=== PATIENT | male | born 1980 | race Caucasian/White ===

== ENCOUNTER 2020-04-01 01:03 | Emergency (ER) | payer BC, OTHER ==
[~2020-04-01] VITALS: Ht 175 cm; Wt 88.0 kg
--- NOTE | 2020-04-01 01:37 | ED General ---
General Chief Complaint: Skin/Wound Problems Stated Complaint: RASH ON GENITALS;ABD PAIN/CRAMPING Source of Information: Patient History of Present Illness Date Seen by Provider: Apr 01, 2020 Time Seen by Provider: 01:17 Initial Comments PT ARRIVES VIA POV FROM HOME STATES HE HAS HAD ITCHING ALL ACROSS LOWER ABDOMEN AND GROIN AREA FOR THE LAST 3 DAYS, TONIGHT HE NOTICED WELTS IN THE AREA AND ITCHING IS MUCH WORSE TONIGHT. HAS NOT TAKEN ANYTHING FOR ITCHING ADDITIONALLY, SINCE YESTERDAY AROUND 1300, PT HAS BEEN HAVING GENERALIZED ABDOMINAL CRAMPING AND BLOATING-COMES AND GOES NOTHING [id number] OR IMPROVES SYMPTOMS STATES HE HAS BEEN HAVING INCREASING STOMACH PROBLEMS EVERY TIME HE EATS FOR THE LAST 2-3 WEEKS--ALOT OF PAIN AND BLOATING AND "INDIGESTION" NO NAUSEA/VOMITING PT STATES HE HAS GERD/ULCERS AND TAKES PRILOSEC. DID NOT TAKE ANY YESTERDAY BECAUSE IT CAUSES HIM TO BE CONSTIPATED, AND HE WAS ABLE TO HAVE 3 BM'S YESTERDAY, BUT NO IMPROVEMENT IN PAIN WITH BM'S. STATES HE IS LACTOSE INTOLERANT AND ABDOMINAL CRAMPING FEELS THE SAME WITH LACTOSE INTOLERANCE. DENIES ANY INGESTION OF MILK PRODUCTS. TOOK TUMS EARLIER, BUT NO IMPROVEMENT IN SYMPTOMS NO PRIOR ABDOMINAL SURGERIES OR PROCEDURES STATES HE HAS BEEN ON PRILOSEC FOR 13 YEARS, AND WAS TOLD 12-13 YEARS AGO THAT HE NEEDED AND EGD AND COLONOSCOPY, BUT HE NEVER HAD IT DONE AND NEVER FOLLOWED UP WITH ANYONE FOR THIS PROBLEM NO FEVER NO URI SYMPTOMS NO RECENT ILLNESS SON WAS DX WITH STREP TODAY-03/31/20 PT DENIES SORE THROAT NO NEW MEDICATIONS, PRODUCTS, FOODS OR EXPOSURES--LATER STATES HE JUST GOT NEW UNDERWEAR THIS WEEK--AND AREA OF RASH IS DIRECTLY IN THIS DISTRIBUTION NO SUSPICIOUS FOODS PCP: [facility]. Allergies and Home Medications Allergies Coded Allergies: Penicillins (Verified Allergy, Unknown, 04/01/20) Home Medications Ciprofloxacin HCl 500 Mg Tablet, 500 MG PO BID Prescribed by: FRED VALENZUELA on 04/01/20342 Hyoscyamine Sulfate 0.125 Mg Tab.subl, 0.25 MG SL Q4H Prescribed by: FRED VALENZUELA on 04/01/20342 L. Acidophilus/Pectin, [place] 1 Each Capsule, 2 EACH PO QID Prescribed by: FRED VAELNZUELA on 04/01/20342 Methylprednisolone 4 Mg Tab.ds.pk, 4 MG PO UD PER DOSE PACK INSTRUCTIONS Prescribed by: FRED VALENZUELA on 04/01/20342 Metronidazole 500 Mg Tablet, 500 MG PO QID Prescribed by: FRED VALENZUELA on 04/01/20342 Tramadol HCl 50 Mg Tablet, 50 MG PO Q4H Prescribed by: FRED VALENZUELA on 04/01/20342 Patient Home Medication List Home Medication List Reviewed: Yes Review of Systems Review of Systems Constitutional: no symptoms reported; No chills, No diaphoresis, No dizziness, No fever EENTM: no symptoms reported; No nose congestion, No throat pain Respiratory: no symptoms reported; No cough, No short of breath Cardiovascular: no symptoms reported; No chest pain Gastrointestinal: see HPI, abdominal pain; No diarrhea, No nausea, No vomiting Genitourinary: no symptoms reported Musculoskeletal: no symptoms reported Skin: see HPI, pruritus, rash Psychiatric/Neurological: No Symptoms Reported Hematologic/Lymphatic: No Symptoms Reported Immunological/Allergic: no symptoms reported Past Fythpsc-Rcwyap-Xcgqya Hx Past Med/Social Hx: Reviewed and Corrections made Patient Social History Alcohol Use: Rarely Uses Past Medical History Surgeries: No Respiratory: No Cardiac: Yes (DOES NOT TAKE MEDICATION FOR HTN) Hypertension Neurological: No Genitourinary: No Gastrointestinal: Yes (LACTOSE INTOLERANCE) Gastroesophageal Reflux, Ulcer Musculoskeletal: No Endocrine: No HEENT: No Cancer: No Psychosocial: Yes Anxiety Integumentary: No Blood Disorders: No Physical Exam Vital Signs Vital Signs - First Documented 04/01/20 01:30 Temp 37.1 Pulse 110 Resp 18 B/P (MAP) 117/90 (99) Pulse Ox 96 O2 Delivery Room Air Capillary Refill : Height, Weight, BMI Height: '" Weight: lbs. oz. kg; BMI Method: General Appearance: No Apparent Distress, WD/WN HEENT: PERRL/EOMI, TMs Normal, Normal ENT Inspection, Pharynx Normal, Moist Mucous Membranes Neck: Full Range of Motion, Normal Inspection, Non Tender, Supple Respiratory: Normal Breath Sounds, No Accessory Muscle Use, No Respiratory Distress Cardiovascular: Regular Rate, Rhythm, No Murmur, Normal Peripheral Pulses Gastrointestinal: Normal Bowel Sounds, No Organomegaly, No Pulsatile Mass, Soft, Tenderness (MILD GENERALIZED TENDERNESS) Back: Normal Inspection, No CVA Tenderness Extremity: Normal Inspection Neurologic/Psychiatric: Alert, Oriented x3, No Motor/Sensory Deficits, Normal Mood/Affect, agent licensing clerk II-XII Norm as Tested Skin: Normal Color, Warm/Dry, Rash (URTICARIAL RASH TO LOWER ABDOMEN AND GROIN AREA BILATERALLY. ) Progress/Results/Core Measures Suspected Sepsis SIRS Temperature: Pulse: Respiratory Rate: Laboratory Tests 04/01/20 02:15: White Blood Count 15.4H Blood Pressure / Mean: Laboratory Tests 04/01/20 02:15: Creatinine 1.10, Platelet Count 377, Total Bilirubin 0.3 Results/Orders Lab Results Laboratory Tests Test 04/01/20 01:26 04/01/20 02:15 04/01/20 03:15 Range/Units Group A Streptococcus Screen NEGATIVE NEGATIVE White Blood Count 15.4 H 4.3-11.0 10^3/uL Red Blood Count 5.22 4.30-5.52 10^6/uL Hemoglobin 15.6 13.3-17.7 g/dL Hematocrit 45 40-54 % Mean Corpuscular Volume 87 80-99 fL Mean Corpuscular Hemoglobin 30 25-34 pg Mean Corpuscular Hemoglobin Concent 34 32-36 g/dL Red Cell Distribution Width 11.9 10.0-14.5 % Platelet Count 377 130-400 10^3/uL Mean Platelet Volume 10.8 9.0-12.2 fL Immature Granulocyte % (Auto) 0 % Neutrophils (%) (Auto) 73 42-75 % Lymphocytes (%) (Auto) 18 12-44 % Monocytes (%) (Auto) 8 0-12 % Eosinophils (%) (Auto) 1 0-10 % Basophils (%) (Auto) 0 0-10 % Neutrophils # (Auto) 11.2 H 1.8-7.8 10^3/uL Lymphocytes # (Auto) 2.8 1.0-4.0 10^3/uL Monocytes # (Auto) 1.2 H 0.0-1.0 10^3/uL Eosinophils # (Auto) 0.1 0.0-0.3 10^3/uL Basophils # (Auto) 0.0 0.0-0.1 10^3/uL Immature Granulocyte # (Auto) 0.1 0.0-0.1 10^3/uL Neutrophils % (Manual) 71 % Lymphocytes % (Manual) 19 % Monocytes % (Manual) 8 % Eosinophils % (Manual) 1 % Atypical Lymphocytes 1 % Blood Morphology Comment NORMAL Sodium Level 139 135-145 MMOL/L Potassium Level 4.0 3.6-5.0 MMOL/L Chloride Level 106 98-107 MMOL/L Carbon Dioxide Level 21 21-32 MMOL/L Anion Gap 12 5-14 MMOL/L Blood Urea Nitrogen 15 7-18 MG/DL Creatinine 1.10 0.60-1.30 MG/DL Estimat Glomerular Filtration Rate > 60 BUN/Creatinine Ratio 14 Glucose Level 122 H 70-105 MG/DL Calcium Level 9.2 8.5-10.1 MG/DL Corrected Calcium 8.9 8.5-10.1 MG/DL Magnesium Level 1.9 1.6-2.4 MG/DL Total Bilirubin 0.3 0.1-1.0 MG/DL Aspartate Amino Transf (AST/SGOT) 22 5-34 U/L Alanine Aminotransferase (ALT/SGPT) 45 0-55 U/L Alkaline Phosphatase 88 40-136 U/L Total Protein 7.9 6.4-8.2 GM/DL Albumin 4.4 3.2-4.5 GM/DL Amylase Level 42 25-125 U/L Lipase 16 8-78 U/L Monoscreen NEGATIVE NEGATIVE Urine Color YELLOW Urine Clarity SL CLOUDY Urine pH 5.5 5-9 Urine Specific [place] 1.020 1.016-1.022 Urine Protein NEGATIVE NEGATIVE Urine Glucose (UA) NEGATIVE NEGATIVE Urine Ketones NEGATIVE NEGATIVE Urine Nitrite NEGATIVE NEGATIVE Urine Bilirubin NEGATIVE NEGATIVE Urine Urobilinogen 0.2 < = 1.0 MG/DL Urine Leukocyte Esterase NEGATIVE NEGATIVE Urine RBC (Auto) NEGATIVE NEGATIVE Urine RBC 0-2 /HPF Urine WBC RARE /HPF Urine Squamous Epithelial Cells RARE /HPF Urine Crystals NONE /LPF Urine Bacteria NEGATIVE /HPF Urine Casts NONE /LPF Urine Mucus NEGATIVE /LPF Urine Culture Indicated NO Urine Opiates Screen NEGATIVE NEGATIVE Urine Oxycodone Screen NEGATIVE NEGATIVE Urine Methadone Screen NEGATIVE NEGATIVE Urine Propoxyphene Screen NEGATIVE NEGATIVE Urine Barbiturates Screen NEGATIVE NEGATIVE Ur Tricyclic Antidepressants Screen NEGATIVE NEGATIVE Urine Phencyclidine Screen NEGATIVE NEGATIVE Urine Amphetamines Screen NEGATIVE NEGATIVE Urine Methamphetamines Screen NEGATIVE NEGATIVE Urine Benzodiazepines Screen NEGATIVE NEGATIVE Urine Cocaine Screen NEGATIVE NEGATIVE Urine Cannabinoids Screen NEGATIVE NEGATIVE My Orders Orders - FRED VALENZUELA DO Rapid Strep A Screen (04/01/20 01:21) Ed Iv/Invasive Line Start (04/01/20 01:44) Amylase (04/01/20 01:44) Cbc With Automated Diff (04/01/20 01:44) Comprehensive Metabolic Panel (04/01/20 01:44) Lipase (04/01/20 01:44) Magnesium (04/01/20 01:44) Ua Culture If Indicated (04/01/20 01:44) Ct Abd/Pelv W (Appendicitis) (04/01/20 01:44) Acute Abd Series (04/01/20 01:44) Famotidine Injection (Pepcid Injection) (04/01/20 01:44) Methylprednisolone Sod Succ (Solu-Medrol (04/01/20 01:45) Monotest (04/01/20 01:47) Diphenhydramine Injection (Benadryl Inje (04/01/20 02:00) Iohexol Injection (Omnipaque 350 Mg/Ml 1 (04/01/20 02:15) Received Contrast (Hold Metformin- Contr (04/01/20 02:15) Ns (Ivpb) (Sodium Chloride 0.9% Ivpb Bag (04/01/20 02:15) Manual Differential (04/01/20 02:15) Drug Screen Stat (Urine) (04/01/20 03:20) Fentanyl Injection (Sublimaze Injection (04/01/20 03:45) Ciprofloxacin Iv 400mg/200ml (Cipro Iv S (04/01/20 03:45) Metronidazole Tablet (Flagyl Tablet) (04/01/20 03:45) Medications Given in ED Current Medications Medications Dose Ordered Sig/[place] Route Start Time Stop Time Status Last Admin Dose Admin Ciprofloxacin/ Dextrose 200 ml @ 200 mls/hr ONCE ONCE IV 04/01/20 03:45 04/01/20 04:44 04/01/20 03:54 200 MLS/HR Diphenhydramine HCl 50 mg ONCE ONCE IVP 04/01/20 02:00 04/01/20 02:01 DC 04/01/20 02:15 50 MG Fentanyl Citrate 50 mcg ONCE ONCE IVP 04/01/20 03:45 04/01/20 03:46 DC 04/01/20 03:54 50 MCG Methylprednisolone Sodium Succinate 125 mg ONCE ONCE IVP 04/01/20 01:45 04/01/20 01:48 DC 04/01/20 02:14 125 MG Metronidazole 500 mg ONCE ONCE PO 04/01/20 03:45 04/01/20 03:46 DC 04/01/20 03:54 500 MG Vital Signs/I&O 04/01/20 01:30 Temp 37.1 Pulse 110 Resp 18 B/P (MAP) 117/90 (99) Pulse Ox 96 O2 Delivery Room Air Capillary Refill : Progress Note : Progress Note GIVEN IV FLUIDS, PAIN MEDICATION, ANTIBIOTICS FOR GI COMPLAINTS--SYMPTOMS MUCH IMPROVED AT DISMISSAL GIVEN BENADRYL, PEPCID AND SOLU-MEDROL FOR RASH--RASH AND ITCHING COMPLETELY GONE UNEVENTFUL ER STAY Diagnostic Imaging Comments ABDOMEN XRAYS--NO ACUTE PROCESS, PENDING RADIOLOGIST REVIEW CT ABDOMEN/PELVIS--MURAL THICKENING OF TERMINAL ILEUM. MILD RIGHT COLON INFLAMMATION AROUND CECUM AND PROXIMAL ASCENDING COLON. APPENDIX NORMAL. NO DIVERTICULITIS. FINDINGS SUSPICIOUS FOR ILEOCOLITIS, CORRELATE WITH INDICATIONS OF CROHN'S DISEASE--PER [facility] VIA FAX AT [id number] Reviewed: Reviewed by Me Departure Impression Primary Impression: Colitis Additional Impression: ALLERGIC REACTION -POSSIBLY CONTACT DERMATITIS TO LOWER ABDOMEN AND GROIN Disposition: HOME, SELF-CARE Condition: Improved Departure-Patient Inst. Referrals: OBDULIO SEALS MD [facility] [place] Patient Instructions: Allergic Reaction ED, Colitis (DC) Add. Discharge Instructions: BENADRYL 50 MG EVERY 4-6 HOURS NEEDED FOR RASH AND ITCHING MAY USE HYDROCORTISONE CREAM TO RASH NEEDED WASH AND DOUBLE RINSE ALL CLOTHING CLEAR LIQUIDS--WATER, BROTH, JELLO, GATORADE--DRINK ENOUGH SO YOU ARE URINATING EVERY 2-3 HOURS WHILE AWAKE NO FOOD UNTIL YOUR PAIN IS COMPLETELY GONE, THEN YOU MAY ADD A BRATS DIET TO CLEAR LIQUIDS--BANANAS, RICE, APPLESAUCE, TOAST, SALTINES FOLLOW UP WITH DR. SEALS OR SURGEON OR GI SPECIALIST OF CHOICE THIS WEEK FOR FURTHER CARE--CALL TOMORROW MORNING TO SCHEDULE APPOINTMENT. ' RETURN TO ER IF ABDOMINAL PAIN WORSENS, YOU DEVELOP FEVER OR IF YOU CANNOT KEEP LIQUIDS DOWN. All discharge instructions reviewed with patient and/or family. Voiced understanding. Scripts Tramadol HCl (Ultram) 50 Mg Tablet 50 MG PO Q4H for Pain, #20 TAB Prov: FRED VALENZUELA DO 04/01/20 Methylprednisolone (Medrol) 4 Mg Tab.ds.pk 4 MG PO UD for 6 Days, #21 PKG PER DOSE PACK INSTRUCTIONS Prov: FRED VALENZUELA DO 04/01/20 Hyoscyamine Sulfate (Levsin-Sl) 0.125 Mg Tab.subl 0.25 MG SL Q4H, #20 TAB Prov: FRED VALENZUELA DO 04/01/20 Metronidazole (Flagyl) 500 Mg Tablet 500 MG PO QID, #40 TAB Prov: FRED VALENZUELA DO 04/01/20 Ciprofloxacin HCl (Ciprofloxacin HCl) 500 Mg Tablet 500 MG PO BID, #14 TAB Prov: FRED VALENZUELA DO 04/01/20 L. Acidophilus/Pectin, [place] (Acidophilus Capsule) 1 Each Capsule 2 EACH PO QID, #40 CAP Prov: FRED VALENZUELA DO 04/01/20 FRED VALENZUELA DO Apr 01, 2020 01:37
[2020-04-01] MEDS ORDERED: FAMOTIDINE 20MG/2ML IV (PEPCID) IV STA (01:44)
[2020-04-01] MEDS ORDERED: methylPREDNISolone 125 MG (Solu-MEDROL) VIAL IVP ONE (01:45)
[2020-04-01] MEDS ORDERED: diphenhydrAMINE 50 MG/ML INJ (BENADRYL) IVP ONE (02:00)
[2020-04-01] MEDS ORDERED: HOLD METFORMIN - RECEIVED CONTRAST 20 ML VIAL IV SCH (02:15)
[2020-04-01] MEDS ORDERED: NS 100 ML (IVPB) BAG IV ONE (02:15)
[2020-04-01] MEDS ORDERED: IOHEXOL 350 MG/ML 100 ML (OMNIPAQUE 350) VIAL IV ONE (02:15)
[2020-04-01 02:25] LABS: BASOPHILS % (AUTO) 0 % (0-10); EOSINOPHILS # (AUTO) 0.1 10^3/uL (0.0-0.3); EOSINOPHILS % (AUTO) 1 % (0-10); HEMATOCRIT 45 % (40-54); HEMOGLOBIN 15.6 g/dL (13.3-17.7); LYMPHOCYTES # (AUTO) 2.8 10^3/uL (1.0-4.0); LYMPHOCYTES % (AUTO) 18 % (12-44); MEAN CORPUSCULAR HEMOGLOBIN 30 pg (25-34); MEAN CORPUSCULAR HGB CONC 34 g/dL (32-36); MEAN CORPUSCULAR VOLUME 87 fL (80-99); MEAN PLATELET VOLUME 10.8 fL (9.0-12.2); MONOCYTES # (AUTO) 1.2 10^3/uL (0.0-1.0); MONOCYTES % (AUTO) 8 % (0-12); NEUTROPHILS # (AUTO) 11.2 10^3/uL (1.8-7.8); NEUTROPHILS % (AUTO) 73 % (42-75); PLATELET COUNT 377 10^3/uL (130-400); WHITE BLOOD COUNT 15.4 10^3/uL (4.3-11.0)
[2020-04-01 02:31] LABS: ALBUMIN 4.4 GM/DL (3.2-4.5); CHLORIDE 106 MMOL/L (98-107); SODIUM 139 MMOL/L (135-145)
[2020-04-01 02:32] LABS: AMYLASE 42 U/L (25-125); CALCIUM 9.2 MG/DL (8.5-10.1)
[2020-04-01 02:33] LABS: GLUCOSE 122 MG/DL (70-105); TOTAL PROTEIN 7.9 GM/DL (6.4-8.2)
[2020-04-01 02:35] LABS: BILIRUBIN,TOTAL 0.3 MG/DL (0.1-1.0); CARBON DIOXIDE 21 MMOL/L (21-32)
[2020-04-01 02:37] LABS: ALKALINE PHOSPHATASE 88 U/L (40-136); GFR ESTIMATED > 60
[2020-04-01 02:38] LABS: BUN/CREATININE RATIO 14
[2020-04-01 02:40] LABS: ALANINE AMINOTRANSFERASE 45 U/L (0-55); MAGNESIUM 1.9 MG/DL (1.6-2.4)
[2020-04-01 02:41] LABS: LIPASE 16 U/L (8-78)
[2020-04-01 03:11] LABS: ATYPICAL LYMPHOCYTES 1 %; EOSINOPHILS % (MANUAL) 1 %; LYMPHOCYTES % (MANUAL) 19 %; MONOCYTES % (MANUAL) 8 %; NEUTROPHILS % (MANUAL) 71 %; RBC MORPH NORMAL
[2020-04-01 03:22] LABS: BILIRUBIN,URINE NEGATIVE (NEGATIVE); CLARITY,URINE SL CLOUDY; COLOR,URINE YELLOW; GLUCOSE, URINE (UA) NEGATIVE (NEGATIVE); KETONES,URINE NEGATIVE (NEGATIVE); LEUKOCYTE ESTERASE ,URINE NEGATIVE (NEGATIVE); NITRITE,URINE NEGATIVE (NEGATIVE); PH,URINE 5.5 (5-9); PROTEIN,URINE NEGATIVE (NEGATIVE)
[2020-04-01 03:31] LABS: BACTERIA,URINE NEGATIVE /HPF; RBC,URINE 0-2 /HPF; SQUAMOUS EPITHELIAL CELL,UR RARE /HPF; WBC,URINE RARE /HPF
[2020-04-01 03:35] LABS: AMPHETAMINE SCREEN, URINE NEGATIVE (NEGATIVE); BARBITURATE SCREEN URINE NEGATIVE (NEGATIVE); BENZODIAZEPINES SCREEN URINE NEGATIVE (NEGATIVE); CANNABINOID SCREEN, URINE NEGATIVE (NEGATIVE); COCAINE SCREEN URINE NEGATIVE (NEGATIVE); METHADONE STAT NEGATIVE (NEGATIVE); METHAMPHETAMINE SCREEN URINE S NEGATIVE (NEGATIVE); OPIATE SCREEN URINE NEGATIVE (NEGATIVE); OXYCODONE STAT NEGATIVE (NEGATIVE); PROPOXYPHENE STAT NEGATIVE (NEGATIVE); TRICYCLIC ANTIDEPRESSANTS SCRE NEGATIVE (NEGATIVE)
[2020-04-01] MEDS ORDERED: METH4TAB PO (03:43)
[2020-04-01] MEDS ORDERED: TRAM-42 PO (03:43)
[2020-04-01] MEDS ORDERED: METR500T PO (03:43)
[2020-04-01] MEDS ORDERED: CIPR500T5 PO (03:43)
[2020-04-01] MEDS ORDERED: L. A1CAP11 PO (03:43)
[2020-04-01] MEDS ORDERED: HYOS0.1283 SL (03:43)
[2020-04-01] MEDS ORDERED: metroNIDAZOLE 500 MG (FLAGYL) TAB PO ONE (03:45)
[2020-04-01] MEDS ORDERED: fentaNYL INJECTION 100 MCG/2 ML AMP IVP ONE (03:45)
[2020-04-01] MEDS ORDERED: CIPROFLOXACIN IV 400MG/200ML 200 ML IV ONE (03:45)
[2020-04-01 05:01] VITALS: BP 122/88
--- NOTE | 2020-04-01 06:50 | Diagnostic Imaging Report ---
Indication: Generalized abdominal pain. Comparison: None. Discussion: AP view of the chest and supine and upright views of the abdomen were obtained. Contrast is noted within the renal collecting system, likely from prior CT. The heart and lungs are normal. No osseous abnormality. Nonobstructive bowel gas pattern. No significant constipation. No pneumatosis or pneumoperitoneum. No osseous abnormality. Impression: 1. Unremarkable bowel gas pattern. No acute cardiopulmonary process. Dictated by: Dictated on workstation # [id number]
--- NOTE | 2020-04-01 07:09 | Diagnostic Imaging Report ---
PROCEDURE: CT abdomen and pelvis with contrast, rule out appendicitis. TECHNIQUE: Multiple contiguous axial images were obtained through the abdomen and pelvis after the administration of intravenous contrast. All CT scans use one or more of the following dose optimizing techniques: automated exposure control, MA and/or KvP adjustment based on patient size and exam type or iterative reconstruction. INDICATION: Redness and itching in the groin and genital region for 3 days. Not improving. Abdominal cramping, bloating and diarrhea. Right lower quadrant pain. EXAMINATION: CT of the abdomen and pelvis with contrast from 04/01/2020 FINDINGS: The lung bases appear clear. No acute osseous abnormality appreciated. Liver, spleen, pancreas, adrenal glands and gallbladder unremarkable for acute abnormality. There is mild hyperdensity at the very tip of the gallbladder nonspecific. Findings could be due to a focal stone, polyp or wall thickening. Sonography on a nonemergent basis if there is no right upper quadrant pain could provide better characterization. The kidneys appear unremarkable. There is marked wall thickening and fat stranding about the cecum and adjacent terminal ileum. No adjacent free air or abscess is seen. The proximal appendix itself may demonstrate mild inflammatory change but likely due to adjacent abnormality in the cecum. More distally, the appendix is normal. There is no ascites or free air. There are findings of mild constipation. There is mild subcutaneous fat stranding in the left inguinal region of uncertain etiology but consistent with patient history. Clinical exclusion of cellulitis recommended. No underlying abscess or fluid collection appreciated. IMPRESSION: 1. Findings of likely ileocolitis, clinical correlation for possible Crohn's disease recommended. 2. No acute process within the appendix. 3. Minimal fat stranding in the left inguinal region see above discussion. Cellulitis should be clinically excluded. The pertinent findings agree with the preliminary report. Dictated by: Dictated on workstation # [id number]
== END 2020-04-01 05:01 | disposition home or self-care (01) ==
LOC: ER 01:07
DX: K52.9 Noninfective gastroenteritis and colitis, unspecified (principal); Z88.0 Allergy status to penicillin; Z79.52 Long term (current) use of systemic steroids
CPT/HCPCS: 36415; 74022; 74177; 80053; 80306; 81000; 82150; 83690; 83735; 85007; 85027; 86308; 87430

== ENCOUNTER 2020-04-04 05:57 | Observation (INO) | payer BC ==
[~2020-04-04] VITALS: Ht 175 cm; Wt 88.0 kg
[~2020-04-04 05:57] MED LIST: CIPR500T5 PO; HYOS0.1283 SL; L. A1CAP11 PO; METH4TAB PO; METR500T PO; TRAM-42 PO
[2020-04-04 06:25] LABS: BILIRUBIN,URINE 1+ (NEGATIVE); CLARITY,URINE SL CLOUDY; COLOR,URINE AMBER; GLUCOSE, URINE (UA) NEGATIVE (NEGATIVE); KETONES,URINE TRACE (NEGATIVE); LEUKOCYTE ESTERASE ,URINE TRACE (NEGATIVE); NITRITE,URINE NEGATIVE (NEGATIVE); PH,URINE 5.5 (5-9); PROTEIN,URINE 1+ (NEGATIVE)
[2020-04-04] MEDS ORDERED: diphenhydrAMINE 50 MG/ML INJ (BENADRYL) IVP ONE (06:30)
[2020-04-04] MEDS ORDERED: LACTATED RINGERS 1,000 ML IV ONE (06:30)
[2020-04-04] MEDS ORDERED: FAMOTIDINE 20MG/2ML IV (PEPCID) IVP ONE (06:30)
[2020-04-04 06:39] LABS: BASOPHILS % (AUTO) 0 % (0-10); EOSINOPHILS % (AUTO) 0 % (0-10); HEMATOCRIT 44 % (40-54); HEMOGLOBIN 15.2 g/dL (13.3-17.7); LYMPHOCYTES # (AUTO) 3.9 10^3/uL (1.0-4.0); LYMPHOCYTES % (AUTO) 20 % (12-44); MEAN CORPUSCULAR HEMOGLOBIN 30 pg (25-34); MEAN CORPUSCULAR HGB CONC 34 g/dL (32-36); MEAN CORPUSCULAR VOLUME 88 fL (80-99); MEAN PLATELET VOLUME 10.6 fL (9.0-12.2); MONOCYTES # (AUTO) 1.9 10^3/uL (0.0-1.0); MONOCYTES % (AUTO) 10 % (0-12); NEUTROPHILS # (AUTO) 13.7 10^3/uL (1.8-7.8); NEUTROPHILS % (AUTO) 70 % (42-75); PLATELET COUNT 462 10^3/uL (130-400); WHITE BLOOD COUNT 19.7 10^3/uL (4.3-11.0)
[2020-04-04 06:50] LABS: BACTERIA,URINE NEGATIVE /HPF; SQUAMOUS EPITHELIAL CELL,UR 0-2 /HPF; WBC,URINE 0-2 /HPF
[2020-04-04 06:52] LABS: ALBUMIN 4.1 GM/DL (3.2-4.5); CHLORIDE 106 MMOL/L (98-107); POTASSIUM 3.7 MMOL/L (3.6-5.0); SODIUM 139 MMOL/L (135-145)
[2020-04-04 06:53] LABS: CALCIUM 8.7 MG/DL (8.5-10.1)
[2020-04-04 06:54] LABS: GLUCOSE 105 MG/DL (70-105); PROTHROMBIN TIME PATIENT 13.1 SEC (12.2-14.7)
[2020-04-04 06:55] LABS: TOTAL PROTEIN 7.1 GM/DL (6.4-8.2)
[2020-04-04 06:56] LABS: BILIRUBIN,TOTAL 0.4 MG/DL (0.1-1.0); CARBON DIOXIDE 22 MMOL/L (21-32)
[2020-04-04 06:58] LABS: ALKALINE PHOSPHATASE 68 U/L (40-136); CREATININE SERUM 1.09 MG/DL (0.60-1.30); GFR ESTIMATED > 60
[2020-04-04 06:59] LABS: BUN/CREATININE RATIO 17
[2020-04-04 07:01] LABS: ALANINE AMINOTRANSFERASE 22 U/L (0-55)
[2020-04-04 07:02] LABS: LIPASE 31 U/L (8-78)
[2020-04-04] MEDS ORDERED: fentaNYL INJECTION 100 MCG/2 ML AMP IVP ONE (07:15)
[2020-04-04] MEDS ORDERED: ONDANSETRON 4 MG/2 ML (SDV) Z0FRAN IVP ONE (07:15)
[2020-04-04 07:35] LABS: BAND NEUTROPHILS 2 %; BASOPHILS % (MANUAL) 0 %; EOSINOPHILS % (MANUAL) 1 %; LYMPHOCYTES % (MANUAL) 16 %; MONOCYTES % (MANUAL) 9 %; NEUTROPHILS % (MANUAL) 72 %; RBC MORPH NORMAL
[2020-04-04] MEDS ORDERED: predniSONE 20 MG TAB PO ONE (08:15)
[2020-04-04] MEDS ORDERED: CIPROFLOXACIN IV 400MG/200ML 200 ML IV ONE (08:15)
--- NOTE | 2020-04-04 08:20 | ED General ---
General Chief Complaint: Allergic Reaction Stated Complaint: RASH Nursing Triage Note: TO ED VIA POV AND AMBULATORY TO ROOM 5 WITH C/O INCREASING RASH TO GROIN AREA, ITCHING, AND NEW RASH APPEARANCE TO FACE. TOOK BENADRYL AT 0100 WITH NO RELIEF. PT SEEN IN THIS ER 04/01/20 AND DX WITH COLITIS AND GIVEN RX. RASH NOTED ON PREVIOUS VISIT. Nursing Sepsis Screen: No Definite Risk Source of Information: Patient, Old Records Exam Limitations: No Limitations History of Present Illness Date Seen by Provider: Apr 04, 2020 Time Seen by Provider: 06:00 Initial Comments This 39-year-old gentleman presents to the emergency room with complaints of a target-like pruritic rash in the groin and anterior pelvic region, rash across the face, upper abdominal pain, and nausea. He was seen for this on April 01 and was diagnosed with colitis on CT imaging. He was started on a Medrol Dosepak, Cipro, and Flagyl. He has not improved. In fact, the rash has worsened. Benadryl does help some with the rash. He reports no prior episodes. His mother has ulcerative colitis but he has no personal history of inflammatory bowel disease. The radiologist commented on a need to rule out inflammatory bowel disease based on CT imaging when he was here on the . He has no local primary care provider. He is afebrile but tachycardic. Allergies and Home Medications Allergies Coded Allergies: Penicillins (Verified Allergy, Unknown, 04/01/20) Home Medications Ciprofloxacin HCl 500 Mg Tablet, 500 MG PO BID Prescribed by: FRED VALENZUELA on 04/01/20342 Hyoscyamine Sulfate 0.125 Mg Tab.subl, 0.25 MG SL Q4H Prescribed by: FRED VALENZUELA on 04/01/20342 L. Acidophilus/Pectin, [place] 1 Each Capsule, 2 EACH PO QID Prescribed by: FRED VALENZUELA on 04/01/20342 Methylprednisolone 4 Mg Tab.ds.pk, 4 MG PO UD PER DOSE PACK INSTRUCTIONS Prescribed by: FRED VALENZUELA on 04/01/20342 Metronidazole 500 Mg Tablet, 500 MG PO QID Prescribed by: FRED VALENZUELA on 04/01/20342 Tramadol HCl 50 Mg Tablet, 50 MG PO Q4H Prescribed by: FRED VALENZUELA on 04/01/20342 Patient Home Medication List Home Medication List Reviewed: Yes Review of Systems Review of Systems Constitutional: no symptoms reported EENTM: no symptoms reported Respiratory: no symptoms reported Cardiovascular: see HPI Gastrointestinal: see HPI Genitourinary: no symptoms reported Musculoskeletal: no symptoms reported Skin: see HPI Psychiatric/Neurological: No Symptoms Reported Hematologic/Lymphatic: No Symptoms Reported Immunological/Allergic: no symptoms reported Past Tdtmqja-Zatrfn-Svbflm Hx Past Med/Social Hx: Reviewed Nursing Past Med/Soc Hx Patient Social History Alcohol Use: Denies Use Smoking Status: Current Everyday Smoker Recent Infectious Disease Expo: No Recent Hopitalizations: No Seasonal Allergies Seasonal Allergies: No Past Medical History Surgeries: No Respiratory: No Cardiac: Yes (DOES NOT TAKE MEDICATION FOR HTN) Hypertension Neurological: No Genitourinary: No Gastrointestinal: Yes (LACTOSE INTOLERANCE) Colitis, Gastroesophageal Reflux, Ulcer Musculoskeletal: No Endocrine: No HEENT: No Cancer: No Psychosocial: Yes Anxiety Integumentary: No Blood Disorders: No Family Medical History Reviewed and Corrections made GI Disease (Mother has ulcerative colitis) Physical Exam Vital Signs Vital Signs - First Documented 04/04/20 06:07 Temp 36.9 Pulse 116 Resp 18 B/P (MAP) 144/100 (115) O2 Delivery Room Air Capillary Refill : Less Than 3 Seconds Height, Weight, BMI Height: '" Weight: lbs. oz. kg; 28.00 BMI Method: General Appearance: WD/WN, Mild Distress HEENT: PERRL/EOMI, Normal ENT Inspection, Other (Oropharynx somewhat dry) Neck: Normal Inspection Respiratory: No Accessory Muscle Use, No Respiratory Distress, Wheezing Cardiovascular: Regular Rate, Rhythm, No Edema, Normal Peripheral Pulses Gastrointestinal: Normal Bowel Sounds, Soft, Distended, Tenderness (Epigastric region) Extremity: Normal Inspection, No Pedal Edema Neurologic/Psychiatric: Alert, Oriented x3, No Motor/Sensory Deficits, Normal Mood/Affect, end matcher II-XII Norm as Tested Skin: Normal Color, Warm/Dry Progress/Results/Core Measures Suspected Sepsis Recent Fever Within 48 Hours: No Infection Criteria Present: Documented Infection New/Unexplained Altered Menta: No Sepsis Screen: No Definite Risk SIRS Temperature: Pulse: 116 Respiratory Rate: 18 Laboratory Tests 04/04/20 06:27: White Blood Count 19.7H Blood Pressure 144 /100 Mean: 115 Laboratory Tests 04/04/20 06:27: Creatinine 1.09, INR Comment 1.0, Platelet Count 462H, Total Bilirubin 0.4 Results/Orders Lab Results Laboratory Tests Test 04/04/20 06:20 04/04/20 06:27 04/04/20 07:48 Range/Units Urine Color ANIRUDH H Urine Clarity SL CLOUDY Urine pH 5.5 5-9 Urine Specific Two Dot >=1.030 1.016-1.022 Urine Protein 1+ H NEGATIVE Urine Glucose (UA) NEGATIVE NEGATIVE Urine Ketones TRACE H NEGATIVE Urine Nitrite NEGATIVE NEGATIVE Urine Bilirubin 1+ H NEGATIVE Urine Urobilinogen 0.2 < = 1.0 MG/DL Urine Leukocyte Esterase TRACE H NEGATIVE Urine RBC (Auto) NEGATIVE NEGATIVE Urine RBC NONE /HPF Urine WBC 0-2 /HPF Urine Squamous Epithelial Cells 0-2 /HPF Urine Crystals NONE /LPF Urine Bacteria NEGATIVE /HPF Urine Casts NONE /LPF Urine Mucus MODERATE H /LPF Urine Culture Indicated NO White Blood Count 19.7 H 4.3-11.0 10^3/uL Red Blood Count 5.04 4.30-5.52 10^6/uL Hemoglobin 15.2 13.3-17.7 g/dL Hematocrit 44 40-54 % Mean Corpuscular Volume 88 80-99 fL Mean Corpuscular Hemoglobin 30 25-34 pg Mean Corpuscular Hemoglobin Concent 34 32-36 g/dL Red Cell Distribution Width 12.1 10.0-14.5 % Platelet Count 462 H 130-400 10^3/uL Mean Platelet Volume 10.6 9.0-12.2 fL Immature Granulocyte % (Auto) 1 % Neutrophils (%) (Auto) 70 42-75 % Lymphocytes (%) (Auto) 20 12-44 % Monocytes (%) (Auto) 10 0-12 % Eosinophils (%) (Auto) 0 0-10 % Basophils (%) (Auto) 0 0-10 % Neutrophils # (Auto) 13.7 H 1.8-7.8 10^3/uL Lymphocytes # (Auto) 3.9 1.0-4.0 10^3/uL Monocytes # (Auto) 1.9 H 0.0-1.0 10^3/uL Eosinophils # (Auto) 0.0 0.0-0.3 10^3/uL Basophils # (Auto) 0.0 0.0-0.1 10^3/uL Immature Granulocyte # (Auto) 0.1 0.0-0.1 10^3/uL Neutrophils % (Manual) 72 % Lymphocytes % (Manual) 16 % Monocytes % (Manual) 9 % Eosinophils % (Manual) 1 % Basophils % (Manual) 0 % Band Neutrophils 2 % Blood Morphology Comment NORMAL Prothrombin Time 13.1 12.2-14.7 SEC INR Comment 1.0 0.8-1.4 Activated Partial Thromboplast Time 25 24-35 SEC Sodium Level 139 135-145 MMOL/L Potassium Level 3.7 3.6-5.0 MMOL/L Chloride Level 106 98-107 MMOL/L Carbon Dioxide Level 22 21-32 MMOL/L Anion Gap 11 5-14 MMOL/L Blood Urea Nitrogen 18 7-18 MG/DL Creatinine 1.09 0.60-1.30 MG/DL Estimat Glomerular Filtration Rate > 60 BUN/Creatinine Ratio 17 Glucose Level 105 70-105 MG/DL Calcium Level 8.7 8.5-10.1 MG/DL Corrected Calcium 8.6 8.5-10.1 MG/DL Total Bilirubin 0.4 0.1-1.0 MG/DL Aspartate Amino Transf (AST/SGOT) 13 5-34 U/L Alanine Aminotransferase (ALT/SGPT) 22 0-55 U/L Alkaline Phosphatase 68 40-136 U/L C-Reactive Protein High Sensitivity 0.69 H 0.00-0.50 MG/DL Total Protein 7.1 6.4-8.2 GM/DL Albumin 4.1 3.2-4.5 GM/DL Lipase 31 8-78 U/L Troponin I < 0.028 <0.028 NG/ML Micro Results Microbiology 04/04/20 E[facility] Preparation - Final, Complete My Orders Orders - LIBRADO GONZALEZ MD Cbc With Automated Diff (04/04/20 06:16) Comprehensive Metabolic Panel (04/04/20 06:16) Hs C Reactive Protein (04/04/20 06:16) Ua Culture If Indicated (04/04/20 06:16) Erythrocyte Sedimentation Rate (04/04/20 06:16) Ed Iv/Invasive Line Start (04/04/20 06:16) Lactated Ringers (Lr 1000 Ml Iv Solution (04/04/20 06:30) Famotidine Injection (Pepcid Injection) (04/04/20 06:30) Diphenhydramine Injection (Benadryl Inje (04/04/20 06:30) Enrico Prep (04/04/20 06:32) Protime With Inr (04/04/20 06:35) Partial Thromboplastin Time (04/04/20 06:35) Lipase (04/04/20 06:27) Manual Differential (04/04/20 06:27) Ondansetron Injection (Zofran Injectio (04/04/20 07:15) Fentanyl Injection (Sublimaze Injection (04/04/20 07:15) Troponin I (04/04/20 08:00) Ekg Tracing (04/04/20 07:45) Monitor-Rhythm Ecg Trace Only (04/04/20 07:45) Albuterol Inhaler (Ventolin Hfa) (04/04/20 10:00) Chest 1 View, Ap/Pa Only (04/04/20 07:57) Prednisone Tablet (Deltasone Tablet) (04/04/20 08:15) Ciprofloxacin Iv 400mg/200ml (Cipro Iv S (04/04/20 08:15) Medications Given in ED Current Medications Medications Dose Ordered Sig/[place] Route Start Time Stop Time Status Last Admin Dose Admin Diphenhydramine HCl 25 mg ONCE ONCE IVP 04/04/20 06:30 04/04/20 06:31 DC 04/04/20 06:34 25 MG Famotidine 20 mg ONCE ONCE IVP 04/04/20 06:30 04/04/20 06:31 DC 04/04/20 06:34 20 MG Fentanyl Citrate 50 mcg ONCE ONCE IVP 04/04/20 07:15 04/04/20 07:16 DC 04/04/20 07:13 50 MCG Lactated Ringer's 1,000 ml @ 0 mls/hr Q0M ONCE IV 04/04/20 06:30 04/04/20 06:31 DC 04/04/20 06:28 0 MLS/HR Ondansetron HCl 8 mg ONCE ONCE IVP 04/04/20 07:15 04/04/20 07:16 DC 04/04/20 07:13 8 MG Vital Signs/I&O 04/04/20 06:07 Temp 36.9 Pulse 116 Resp 18 B/P (MAP) 144/100 (115) O2 Delivery Room Air Capillary Refill : Less Than 3 Seconds Blood Pressure Mean: 115 Progress Note #1: Progress Note Patient was treated with fentanyl, Pepcid, Zofran, Benadryl and a liter of IV fluid. WBC is elevated but CRP is normal. Sed rate is pending. The petechial rash on the face and target type rash in the groin area could be cutaneous manifestations of IBD. Case was reviewed with Dr. Ibrahim. He is agreeable to admission. He requested patient be treated with prednisone 60 mg orally and antibiotics continued. Cipro 400 mg IV was ordered for the ER. Patient will eventually need endoscopy and surgical consultation. I contacted Dr. Gonzalez who has accepted consult. Benadryl was given for itching. It was noted that the rash in his groin area was migratory even in the amount of time he was in the ER. A scraping was negative for yeast. Later into the ER stay patient complained of some heaviness in his chest. He was also noted to be wheezing. Lung sounds are otherwise clear. He was given an albuterol inhaler. EKG was obtained and a troponin was ordered. EKG was unremarkable. He reports the chest heaviness started around 05:30 when he woke up. Progress Note #2: Time: 09:42 Progress Note Chest x-ray and troponin were negative. EKG was unremarkable. ECG Initial ECG Impression Date: Apr 04, 2020 Initial ECG Impression Time: 07:45 Initial ECG Rate: 83 Initial ECG Rhythm: Normal Sinus Initial ECG Intervals: Normal Initial ECG Impression: Normal Comment Normal sinus rhythm with no ST elevation or depression. No abnormal intervals or axis deviation. Diagnostic Imaging Diagonstic Imaging: Xray Plain Films/CT/US/NM/MRI: chest Comments Chest x-ray reviewed by me and report reviewed. See report below: NAME: JUVENTINO [facility] REC#: [id number] PT STATUS: REG ER : 1980 PHYSICIAN: LIBRADO GONZALEZ MD ADMIT DATE: 04/04/20/ER Draft Date of Exam:04/04/20 CHEST 1 VIEW, AP/PA ONLY INDICATION: Chest pain and wheezing. EXAMINATION: Frontal chest obtained at 8:20 AM. FINDINGS: The heart and mediastinal silhouette are normal in appearance. The lungs are clear. There is no pneumothorax or pleural fluid. IMPRESSION: Negative chest. Dictated on workstation # [id number] Dict: 04/04/20 0831 Trans: 04/04/20 0832 [id number] Interpreted by: FAWAD AGUILAR MD Departure Communication (Admissions) Time/Spoke to Admitting Phy: 07:58 Dr. Ibrahim Time/Spoke to Consulting Phy: 07:58 Dr. Gonzalez Impression Primary Impression: Inflammatory bowel disease Additional Impressions: Abdominal pain Qualified Codes: R10.13 - Epigastric pain Skin rash Chest pain Qualified Codes: R07.9 - Chest pain, unspecified Wheezing Disposition: ADMITTED INPATIENT Condition: Improved Admissions Decision to Admit Reason: Admit from ER (General) Decision to Admit/Date: Apr 04, 2020 Time/Decision to Admit Time: 07:45 Departure-Patient Inst. Referrals: NO,LOCAL PHYSICIAN (PCP/Family) Primary Care Physician LIBRADO GONZALEZ MD Apr 04, 2020 08:20
--- NOTE | 2020-04-04 08:33 | Diagnostic Imaging Report ---
INDICATION: Chest pain and wheezing. EXAMINATION: Frontal chest obtained at 8:20 AM. FINDINGS: The heart and mediastinal silhouette are normal in appearance. The lungs are clear. There is no pneumothorax or pleural fluid. IMPRESSION: Negative chest. Dictated by: Dictated on workstation # [id number]
[2020-04-04 09:35] VITALS: BP 128/82
[2020-04-04] MEDS ORDERED: CATHETER FLUSH 10 ML SYR IV PRN (10:00)
[2020-04-04] MEDS ORDERED: RT-ALBUTEROL INHALER HFA (VENTOLIN HFA) 18 GM IH PRN (10:00)
[2020-04-04] MEDS ORDERED: RT-ALBUTEROL INHALER HFA (VENTOLIN HFA) 18 GM IH SCH (10:00)
[2020-04-04] MEDS ORDERED: FLU QUADRIvalent (3YOA+) 60 mcg/0.5 ml 2020-21 (AFLURIA) IM ONE (10:15)
[2020-04-04] MEDS: LACTATED RINGERS 1,000 ML IV SCH ×3 (10:15→17:17)
[2020-04-04] MEDS ORDERED: HYDROcodone/APAP 7.5 MG/325 MG (LORTAB, LORCET PLUS) TABLET PO PRN (11:00)
[2020-04-04 12:00] VITALS: BP 120/86
[2020-04-04] MEDS ORDERED: METR-145 PO (12:13)
[2020-04-04] MEDS ORDERED: CIPR-225 PO (12:13)
[2020-04-04] MEDS ORDERED: DIPH25CA79 PO (12:13)
[2020-04-04] MEDS ORDERED: HYOS-19 PO (12:13)
[2020-04-04] MEDS ORDERED: TRAM50TA3 PO (12:13)
[2020-04-04] MEDS ORDERED: METH4TAB10 PO (12:13)
[2020-04-04] MEDS ORDERED: L.AC1CAP6 PO (12:13)
[2020-04-04] MEDS: metroNIDAZOLE 500 MG/100 ML IVPB (PRE-MIX) IV SCH ×2 (12:15→18:31)
[2020-04-04] MEDS: diphenhydrAMINE 25 MG TAB (BENADRYL) PO PRN ×3 (12:15→23:50)
[2020-04-04] MEDS: fentaNYL INJECTION 100 MCG/2 ML AMP IV PRN ×3 (12:25→23:50)
--- NOTE | 2020-04-04 13:35 | CONSULTATION REPORT ---
DATE OF SERVICE: ADMITTING PHYSICIAN: Dr. Su Ibrahim. HISTORY OF PRESENT ILLNESS: The patient is a 39-year-old male who presented to the Emergency Department with a crampy lower abdominal pain as well as a pruritic rash along the anterior pelvic region. He also reports that he has had epigastric pain as well as some mild nausea. He was recently seen in the Emergency Department for similar type of pain and a CT scan was performed, which did likely show some level of colitis. He was started on Cipro, Flagyl as well as a Medrol Dosepak and states that he initially felt well; however, his symptoms returned with the pain as well as loose stools. He also does have a family history of inflammatory bowel disease with his mother having ulcerative colitis. At this time, upon further questioning, he does report a significant amount of epigastric pain, which is more likely consistent with gastroesophageal reflux disease or peptic ulcer disease. He does have risk factors including smoking for greater than 20 pack years as well as drinking significant amounts of caffeine on a daily basis. He also reports that spicy, greasy and acidic foods do make his symptoms worse. The crampy abdominal pain in the lower abdominal quadrants is more likely consistent with colitis as well as the diarrhea. We will treat him medically with IV hydration, bowel rest with clear liquid diet; however, the acute treatment for acute inflammation of an inflammatory bowel disease with steroids and also on this admission proceeded with an EGD as well as colonoscopy with biopsy. PAST MEDICAL HISTORY: Hypertension, gastroesophageal reflux disease, lactose intolerance, anxiety. PAST SURGICAL HISTORY: None. ALLERGIES: PENICILLIN. MEDICATIONS: Hyoscyamine 0.125 mg q.4 hours p.r.n., Medrol Dosepak, ciprofloxacin, metronidazole, tramadol p.r.n. SOCIAL HISTORY: Positive smoke 20 pack years. Negative alcohol. FAMILY HISTORY: Mother, ulcerative colitis. VITAL SIGNS: Temperature 36.9, blood pressure 144/100, pulse 116, respirations 18. REVIEW OF SYSTEMS: Well-nourished male, currently in no acute distress. He is not experiencing any shortness of breath or difficulty breathing. No chest pain, palpitations or diaphoresis. Epigastric pain on an intermittent basis; however, this usually does occur several times a week. He does report mild nausea; however, no vomiting as well as no hematemesis, no coffee ground emesis. He reports in the past week he has had loose stools; however, does not report any red blood per rectum. He also has had crampy lower abdominal pain for the past week as well. No fever or chills. No recent inadvertent weight loss. All other review of systems negative. PHYSICAL EXAMINATION: CHEST: Clear. Good breath sounds bilaterally. HEART: Regular, no murmurs. EXTREMITIES: No lower extremity edema, negative Homans sign. HEENT: No scleral icterus. NECK: No cervical lymphadenopathy. ABDOMEN: Soft, nondistended. There is pain in the epigastric region as well as the bilateral lower abdominal quadrants upon deep palpation; however, no peritoneal signs. No hernias. SKIN: There is red rash like lesion in the waistline distribution as well as the anterior pelvis and it is unsure if this is due to extraintestinal manifestations of inflammatory bowel disease versus an allergic reaction. At this time, this does not look severe. LABORATORY DATA: WBC 19.7, hemoglobin 12.5, hematocrit 44, platelets 462, BUN 18, creatinine 1.09. ASSESSMENT AND PLAN: A 39-year-old male with significant gastroesophageal reflux disease and peptic ulcer disease as well as crampy lower abdominal pain on an intermittent basis with loose stools, which may indicate some level of inflammatory bowel disease. On this admission, we will treat him medically with IV hydration, bowel rest, IV steroids as well as continuation of antibiotics; however, we will also proceed with an EGD and colonoscopy with biopsies as appropriate on this admission. Job ID: [id number] DocumentID: [id number] Dictated Date: 04/04/2020 13:05:41 Planer Operator Date: 04/04/2020 13:35:26 Dictated By: OBDULIO SEALS MD [facility]
[2020-04-04 14:22] LABS: ERYTHROCYTE SEDIMENTATION RATE 7 MM/HR (0-15)
[2020-04-04 16:00] VITALS: BP 116/71
[2020-04-04] MEDS: ONDANSETRON 4 MG/2 ML (SDV) Z0FRAN IV PRN (18:33)
[2020-04-04] MEDS: PANTOPRAZOLE 40 MG (PROTONIX) VIAL IV SCH (19:43)
[2020-04-04] MEDS: oxyCODONE/APAP 7.5-325 MG (PERCOCET 7.5) TABLET PO PRN (19:44)
--- NOTE | 2020-04-04 19:54 | History & Physical-Hospitalist ---
History of Present Illness HPI/Chief Complaint Odalys Rincon is a 39 year old male who presented with abdominal pain and rash. He reports having abdominal pain for a few months. He says it has been manageable. He says it comes and goes. He says it gets better with eating food. He reports associated nausea and vomiting. He has also had loose stools. He says his mother has ulcerative colitis. He says he had an ulcer about ten years ago and was recommended to undergo an EGD/colonoscopy at that time but never underwent the procedure. He reports that recently he started to have a pruritic rash in his groin and this combined with his abdominal pain was unbearable. He was found to have colitis on CT imaging and was started on Cipro, Flagyl, and steroids. He says that he did not improve and actually started feeling worse with swelling of his lips and itchy ears. Source: patient Exam Limitations: no limitations Date Seen 04/04/20 Time Seen by a Provider: 12:30 Attending Physician Su De León MD PCP No,Local Physician Referring Physician Date of Admission Apr 04, 2020 at 08:14 Home Medications & Allergies Home Medications Reviewed patient Home Medication Reconciliation performed by pharmacy medication reconciliations avionic technician and/or nursing. Patients Allergies have been reviewed. Allergies Allergies Coded Allergies ciprofloxacin (Verified Allergy, Intermediate, 04/04/20) Penicillins (Verified Allergy, Unknown, 04/01/20) Past Txzdgsu-Bpulru-Gnbnrr Hx Past Med/Social Hx: Reviewed Nursing Past Med/Soc Hx Patient Social History Alcohol Use: Denies Use Recreational Drug Use: No Smoking Status: Current Everyday Smoker Recent Foreign Travel: No Contact w/other who traveled: No Recent Hopitalizations: No Recent Infectious Disease Expo: No Seasonal Allergies Seasonal Allergies: No Past Medical History Cardiac: Hypertension Gastrointestinal: Colitis, Gastroesophageal Reflux, Ulcer Psychosocial: Anxiety History of Blood Disorders: No Family History Reviewed and Corrections made GI Disease (Mother has ulcerative colitis) Review of Systems Constitutional: fever EENTM: no symptoms reported Respiratory: no symptoms reported Cardiovascular: no symptoms reported Gastrointestinal: abdominal pain, nausea, vomiting Genitourinary: no symptoms reported Musculoskeletal: no symptoms reported Skin: pruritus, rash Psychiatric/Neurological: No Symptoms Reported Physical Exam Physical Exam Vital Signs Vital Signs - First Documented 04/04/20 04/04/20 04/04/20 06:07 09:20 09:35 Temp 36.9 Pulse 116 Resp 18 B/P (MAP) 144/100 (115) Pulse Ox 97 O2 Delivery Room Air O2 Flow Rate 0.00 Capillary Refill : Less Than 3 Seconds Height, Weight, BMI Height: '" Weight: lbs. oz. kg; 28.73 BMI Method: General Appearance: No Apparent Distress, WD/WN HEENT: PERRL/EOMI, Pharynx Normal Neck: Normal Inspection, Supple Respiratory: Lungs Clear, Normal Breath Sounds, No Respiratory Distress Cardiovascular: Regular Rate, Rhythm, No Edema, No Murmur Gastrointestinal: Normal Bowel Sounds, Soft, Tenderness Extremity: Normal Inspection, Non Tender, No Pedal Edema Neurologic/Psychiatric: Alert, Oriented x3, No Motor/Sensory Deficits, Normal Mood/Affect Skin: Warm/Dry, Rash Lymphatic: No Adenopathy Results Results/Procedures Labs Laboratory Tests 04/04/20 06:27 Patient resulted labs reviewed. Imaging: Reviewed Imaging Report Assessment/Plan Admission Diagnosis Colitis Admission Status: Observation Assessment and Plan Colitis Possible inflammatory bowel disease Family history of ulcerative colitis CT revealed ileocecal inflammation Surgery consulted, appreciate assistance Planning for EGD/colonoscopy with biopsies Begin Prednisone Very unlikely infectious, stop antibiotics Drug rash Stop Ciprofloxacin and Flagyl Rash likely due to Ciprofloxacin Benadryl as needed Current smoker Recommend cessation Nicotine patch Diagnosis/Problems Diagnosis/Problems (1) Colitis Status: Acute (2) Drug rash Status: Acute (3) Skin rash Status: Acute (4) Current every day smoker Status: Acute SU DE LEÓN MD Apr 04, 2020 19:54
[2020-04-04 20:00] VITALS: BP 113/55
[2020-04-04] MEDS ORDERED: NICOTINE 14 MG (NICODERM) PATCH TD ONE (20:00)
[2020-04-04] MEDS ORDERED: CIPROFLOXACIN 400 MG/D5W 200 ML (PRE-MIX) IV SCH (21:00)
[2020-04-04] MEDS ORDERED: FAMOTIDINE 20MG/2ML IV (PEPCID) IV SCH (21:00)
[2020-04-05] VITALS: BP 103/58
[2020-04-05] MEDS: LACTATED RINGERS 1,000 ML IV SCH ×3 (00:58→20:16)
[2020-04-05 04:00] VITALS: BP 109/59
[2020-04-05] MEDS: predniSONE 20 MG TAB PO SCH (06:21)
[2020-04-05 06:25] LABS: BASOPHILS % (AUTO) 0 % (0-10); EOSINOPHILS % (AUTO) 0 % (0-10); HEMATOCRIT 41 % (40-54); HEMOGLOBIN 13.8 g/dL (13.3-17.7); LYMPHOCYTES # (AUTO) 1.6 10^3/uL (1.0-4.0); LYMPHOCYTES % (AUTO) 11 % (12-44); MEAN CORPUSCULAR HEMOGLOBIN 30 pg (25-34); MEAN CORPUSCULAR HGB CONC 34 g/dL (32-36); MEAN CORPUSCULAR VOLUME 89 fL (80-99); MEAN PLATELET VOLUME 11.4 fL (9.0-12.2); MONOCYTES # (AUTO) 0.9 10^3/uL (0.0-1.0); MONOCYTES % (AUTO) 6 % (0-12); NEUTROPHILS # (AUTO) 11.7 10^3/uL (1.8-7.8); NEUTROPHILS % (AUTO) 82 % (42-75); PLATELET COUNT 382 10^3/uL (130-400); WHITE BLOOD COUNT 14.3 10^3/uL (4.3-11.0)
[2020-04-05] MEDS: diphenhydrAMINE 25 MG TAB (BENADRYL) PO PRN ×3 (06:27→18:29)
[2020-04-05] MEDS: oxyCODONE/APAP 7.5-325 MG (PERCOCET 7.5) TABLET PO PRN (06:28)
[2020-04-05 06:35] LABS: CHLORIDE 107 MMOL/L (98-107); POTASSIUM 4.3 MMOL/L (3.6-5.0); SODIUM 139 MMOL/L (135-145)
[2020-04-05 06:36] LABS: CALCIUM 8.7 MG/DL (8.5-10.1)
[2020-04-05 06:37] LABS: GLUCOSE 118 MG/DL (70-105)
[2020-04-05 06:38] LABS: CARBON DIOXIDE 23 MMOL/L (21-32)
[2020-04-05 06:40] LABS: CREATININE SERUM 0.83 MG/DL (0.60-1.30); GFR ESTIMATED > 60
[2020-04-05 06:41] LABS: BUN/CREATININE RATIO 16
[2020-04-05 08:00] VITALS: BP 108/68
[2020-04-05] MEDS ORDERED: CALAMINE LOTION 6 OZ. BOTTLE TP PRN (08:15)
[2020-04-05] MEDS ORDERED: ACETAMINOPHEN 325 MG TABLET PO PRN (08:15)
[2020-04-05] MEDS: PANTOPRAZOLE 40 MG (PROTONIX) VIAL IV SCH ×2 (08:51→20:16)
[2020-04-05] MEDS: NICOTINE PATCH REMOVAL TP SCH (08:52)
[2020-04-05] MEDS ORDERED: NICOTINE 14 MG (NICODERM) PATCH TD SCH (09:00)
--- NOTE | 2020-04-05 10:36 | Progress Note ---
Subjective Date Seen by a Provider: Apr 05, 2020 Time Seen by a Provider: 09:55 Subjective/Events-last exam Patient seen with Dr. Gonzalez. Patient reports rash over left upper extremity, right axilla region, and groin region which he reports itches. He does report that this is better since it started a few days ago. He denies any N/V, heartburn. He does report some abdominal tenderness and bloating. Tolerating clear liquid diet. He does report he feels anxious and is worried about the procedure tomorrow. Objective Exam Vital Signs Date Time Temp Pulse Resp B/P (MAP) Pulse Ox O2 Delivery O2 Flow Rate FiO2 04/05/20 08:00 36.1 69 20 108/68 (81) 96 Room Air 04/05/20 08:00 Room Air 04/05/20 04:00 36.5 72 18 109/59 (76) 94 Room Air 04/05/20 00:00 36.4 69 18 103/58 (73) 95 Room Air 04/04/20 20:05 99 Room Air 04/04/20 20:00 36.4 76 18 113/55 (74) 95 Room Air 04/04/20 19:45 Room Air 04/04/20 16:00 36.6 86 116/71 (86) 0.00 04/04/20 12:00 37.8 89 18 120/86 (97) 99 I & O 04/05/20 07:00 Intake Total 4800 ml Balance 4800 ml Capillary Refill : Less Than 3 Seconds General Appearance: WD/WN, Anxious Respiratory: No Accessory Muscle Use, No Respiratory Distress Cardiovascular: Regular Rate, Rhythm, No Edema Gastrointestinal: distended (Mild), tenderness Extremity: Normal Inspection, Normal Range of Motion Neurologic/Psychiatric: Alert, Oriented x3 Skin: Normal Color, Warm/Dry, Other (There are multiple pinpoint rash over the left upper extremity and under the right axilla) Results Lab Laboratory Tests 04/05/20 05:15: White Blood Count 14.3H, Red Blood Count 4.57, Hemoglobin 13.8, Hematocrit 41, Mean Corpuscular Volume 89, Mean Corpuscular Hemoglobin 30, Mean Corpuscular Hemoglobin Concent 34, Red Cell Distribution Width 12.1, Platelet Count 382, Mean Platelet Volume 11.4, Immature Granulocyte % (Auto) 1, Neutrophils (%) (Auto) 82H, Lymphocytes (%) (Auto) 11L, Monocytes (%) (Auto) 6, Eosinophils (%) (Auto) 0, Basophils (%) (Auto) 0, Neutrophils # (Auto) 11.7H, Lymphocytes # (Auto) 1.6, Monocytes # (Auto) 0.9, Eosinophils # (Auto) 0.0, Basophils # (Auto) 0.0, Immature Granulocyte # (Auto) 0.1, Sodium Level 139, Potassium Level 4.3, Chloride Level 107, Carbon Dioxide Level 23, Anion Gap 9, Blood Urea Nitrogen 13, Creatinine 0.83, Estimat Glomerular Filtration Rate > 60, BUN/Creatinine Ratio 16, Glucose Level 118H, Calcium Level 8.7 Microbiology 04/04/20 E[place] Preparation - Final, Complete Assessment/Plan Assessment/Plan Assess & Plan/Chief Complaint A 39-year-old male with gastroesophageal reflux disease and peptic ulcer disease, crampy lower abdominal pain with loose stools. VSS WBC 14.3 Has benadryl for itching Clear liquid diet IV abx, fluids, pain, nausea meds Will start ativan IV prn Will start bowel prep today for EGD and Colonoscopy tomorrow AM MARYBEL RIVERA APRN Apr 05, 2020 10:36
[2020-04-05] MEDS ORDERED: FAMOTIDINE 20MG/2ML IV (PEPCID) IVP NR (10:45)
[2020-04-05] MEDS ORDERED: MAGNESIUM CITRATE 300 ML BTL PO ONE ×2 (11:00)
[2020-04-05] MEDS: LORazepam INJ 2 MG/ML (ATIVAN) VIAL IVP PRN ×2 (11:18→18:29)
[2020-04-05 12:00] VITALS: BP 114/77
--- NOTE | 2020-04-05 12:17 | Progress Note - Hospitalist ---
Subjective HPI/CC On Admission Date Seen by Provider: Apr 05, 2020 Time Seen by Provider: 10:25 Odalys Rnicon is a 39 year old male who presented with abdominal pain and rash. He reports having abdominal pain for a few months. He says it has been manageable. He says it comes and goes. He says it gets better with eating food. He reports associated nausea and vomiting. He has also had loose stools. He says his mother has ulcerative colitis. He says he had an ulcer about ten years ago and was recommended to undergo an EGD/colonoscopy at that time but never underwent the procedure. He reports that recently he started to have a pruritic rash in his groin and this combined with his abdominal pain was unbearable. He was found to have colitis on CT imaging and was started on Cipro, Flagyl, and steroids. He says that he did not improve and actually started feeling worse with swelling of his lips and itchy ears. Subjective/Events-last exam His abdominal pain is the same. He does not have any lip swelling. He does have a rash on his arm now. He thinks the rash on his groin is improving. Objective Exam Vital Signs Vital Signs Date Time Temp Pulse Resp B/P (MAP) Pulse Ox O2 Delivery O2 Flow Rate FiO2 04/05/20 08:00 36.1 69 20 108/68 (81) 96 Room Air 04/04/20 16:00 0.00 Capillary Refill : Less Than 3 Seconds General Appearance: No Apparent Distress, WD/WN Respiratory: Lungs Clear, Normal Breath Sounds, No Respiratory Distress Cardiovascular: Regular Rate, Rhythm, No Edema, No Murmur Gastrointestinal: Normal Bowel Sounds, Soft, Tenderness Extremity: Normal Inspection, Non Tender, No Pedal Edema Neurologic/Psychiatric: Alert, Oriented x3, No Motor/Sensory Deficits, Normal Mood/Affect Skin: Normal Color, Warm/Dry Results/Procedures Lab Laboratory Tests 04/05/20 05:15 Patient resulted labs reviewed. Imaging: Reviewed Imaging Report Assessment/Plan Assessment and Plan Assess & Plan/Chief Complaint Colitis Possible inflammatory bowel disease Family history of ulcerative colitis CT revealed ileocecal inflammation Surgery consulted, appreciate assistance Planning for EGD/colonoscopy tomorrow with biopsies Bowel prep today then NPO at midnight Continue Prednisone Drug rash Contact dermatitis Rash likely due to Ciprofloxacin Benadryl Pepcid Calamine lotion Current smoker Recommend cessation Nicotine patch Diagnosis/Problems Diagnosis/Problems (1) Colitis Status: Acute (2) Drug rash Status: Acute (3) Skin rash Status: Acute (4) Current every day smoker Status: Acute GAURAV DE LEÓN MD Apr 05, 2020 12:17
[2020-04-05] MEDS: hydrOXYzine (VISTARIL/ATARAX) 25 MG capsule/tablet PO SCH ×2 (13:19→20:16)
[2020-04-05 16:00] VITALS: BP 122/77
[2020-04-05] MEDS ORDERED: NICOTINE 21 MG (NICODERM) PATCH TD ONE (16:30)
--- NOTE | 2020-04-05 19:46 | Conscious Sedation/ASA ---
Conscious Sedation Pre-Proced Time 20:00 ASA Score 2 For ASA 3 and 4: Consider anesthesia and medical clearance. Also, for patients with a history of failed moderate sedation consider anesthesia. Airway Lungs Heart ASA score ASA 1: a normal healthy patient ASA 2: a patient with a mild systemic disease (mid diabetes, controlled hypertension, obesity ASA 3: a patient with a severe systemic disease that limits activity (angina, COPD, prior Myocardial infarction) ASA 4: a patient with an incapacitating disease that is a constant threat to life (CHF, renal failure) ASA 5: a moribund patient not expected to survive 24 hrs. (ruptured aneurysm) ASA 6: a declared brain- patient whose organs are being harvested. For emergent operations, add the letter E after the classification Mallampati Classification Grade 2 Sedation Plan Analgesia, Amnesia, Plan communicated to team members, Discussed options with patient/fam, Discussed risks with patient/fam The patient is an appropriate candidate to undergo the planned procedure, sedation, and anesthesia. The patient immediately re-assessed prior to indication. OBDULIO SEALS MD Apr 05, 2020 19:46
--- NOTE | 2020-04-05 19:47 | Progress Note-Pre Operative ---
Pre-Operative Progress Note H&P Reviewed The H&P was reviewed, patient examined and no changes noted. Date Seen by Provider: Apr 05, 2020 Time Seen by Provider: 20:00 Date H&P Reviewed: Apr 05, 2020 Time H&P Reviewed: :00 Pre-Operative Diagnosis: GERD, colitis OBDULIO SEALS MD Apr 05, 2020 19:47
[2020-04-05 20:09] VITALS: BP 136/91
[2020-04-06] VITALS (17 sets, daily range): BP systolic 110–154; BP diastolic 67–95
[2020-04-06] MEDS: LORazepam INJ 2 MG/ML (ATIVAN) VIAL IVP PRN ×2 (02:05→08:31)
[2020-04-06] MEDS: ONDANSETRON 4 MG/2 ML (SDV) Z0FRAN IV PRN (04:31)
[2020-04-06] MEDS: predniSONE 20 MG TAB PO SCH (06:21)
[2020-04-06] MEDS: LACTATED RINGERS 1,000 ML IV SCH (06:22)
[2020-04-06] MEDS: PANTOPRAZOLE 40 MG (PROTONIX) VIAL IV SCH (08:32)
[2020-04-06] MEDS: NICOTINE PATCH REMOVAL TP SCH (08:32)
[2020-04-06] MEDS: hydrOXYzine (VISTARIL/ATARAX) 25 MG capsule/tablet PO SCH (08:32)
[2020-04-06] MEDS ORDERED: NICOTINE 21 MG (NICODERM) PATCH TD SCH (09:00)
[2020-04-06] MEDS ORDERED: NS IV 500 ML 500 ML ONE (09:04)
[2020-04-06] MEDS ORDERED: LIDOCAINE JELLY 2% 6 ML SYRINGE ONE (09:13)
[2020-04-06] MEDS ORDERED: HURRICAINE EXT TUBE (BENZOCAINE) ONE (09:13)
[2020-04-06] MEDS ORDERED: fentaNYL INJECTION 100 MCG/2 ML AMP ONE ×2 (09:14)
[2020-04-06] MEDS ORDERED: MIDAZOLAM 5 MG/5 ML (VERSED) VIAL ONE ×2 (09:14)
[2020-04-06] MEDS ORDERED: MIDAZOLAM 5 MG/5 ML (VERSED) VIAL IV ONE (09:15)
[2020-04-06] MEDS ORDERED: LIDOCAINE JELLY 2% 6 ML SYRINGE MM PRN (09:15)
[2020-04-06] MEDS ORDERED: fentaNYL INJECTION 100 MCG/2 ML AMP IVP ONE (09:15)
[2020-04-06] MEDS ORDERED: HURRICAINE EXT TUBE (BENZOCAINE) XX PRN (09:15)
[2020-04-06] MEDS ORDERED: NS IV 500 ML 500 ML IV PRN (09:15)
[2020-04-06] MEDS ORDERED: PRD20T PO (11:04)
[2020-04-06] MEDS ORDERED: TRAM50TA3 PO (11:04)
--- NOTE | 2020-04-06 11:43 | Progress Note-Post Operative ---
Post-Operative Progess Note Surgeon (s)/Char Conveyor Tender (s) Surgeon OBDULIO SEALS MD Char Conveyor Tender: none Pre-Operative Diagnosis GERD, colitis Post-Operative Diagnosis reflux eosphagitis(stage 2), moderate HH(2.5cm), moderate gastritis and duodenitis. normal colon and rectum Procedure & Operative Findings Date of Procedure 04/06/20 Procedure Performed/Findings EGD with bx. colonoscopy with bx. Anesthesia Type cs Estimated Blood Loss Estimated blood loss (mL): minimal Specimens/Packing Specimens Removed ge jxn, antrum, terminal ileum, cecum OBDULIO SEALS MD Apr 06, 2020 11:43
--- NOTE | 2020-04-06 12:02 | Discharge Summary ---
Discharge Summary Hospital Course Problems/Dx: (1) Colitis Status: Acute (2) Drug rash Status: Acute (3) Skin rash Status: Acute (4) Current every day smoker Status: Acute Hospital Course Date of Admission: Apr 04, 2020 at 08:14 Admission Diagnosis : Colitis Family Physician/Provider: Mary Carmen Yin Physician Date of Discharge: 04/06/20 Discharge Diagnosis: Colitis Hospital Course: Odalys Rincon is a 39-year-old male who was admitted with colitis. He had an ER visit a few days prior and underwent a CT abdomen which revealed ileocolitis concerning for Crohn's disease. He also had a rash in his groin area previously which was thought to be a contact dermatitis from new clothing. He was started on steroids and antibiotics and discharged home at that time. He returned shortly after with continued abdominal pain and new swelling of his lips and itchy ears. This was thought to be a drug rash due to ciprofloxacin and this was listed as a new allergy. His rash improved prior to discahrge. He was treated with oral prednisone and was given a 2 week prescription on discharge. He will need either a taper or a continuation of his steroids, depending on the results of the biopsies, once he get set up with his primary care physician. Depending on the biopsy results, he may benefit from a GI referral. He is a current every day smoker and cessation was recommended and he was instructed to brain picker nicotine patches. He will also follow-up with Dr. Gonzalez in his clinic. Labs and Pending Lab Test: Laboratory Tests 04/06/20 08:45: Coronavirus 2019 ([facility]) Negative Microbiology 04/04/20 E[facility]ICO Preparation - Final, Complete Home Meds Active Prednisone 20 Mg Tab 60 Mg PO DAILY@0700 14 Days Tramadol HCl 50 Mg Tablet 50 Mg PO Q4H PRN 5 Days Reported Probiotic (L.acidoph & Paracasei,B.lactis) 1 Each Capsule 2 Each PO QID Benadryl (Diphenhydramine HCl) 25 Mg Capsule 50 Mg PO Q4H PRN Hyoscyamine Sulfate 0.125 Mg Tab.subl 0.25 Mg PO Q4H PRN Assessment/Pt Instructions Take medications as prescribed. You're being started on steroids for your colitis. He need to establish care with Dr. Allen Burton who will be your primary care physician. Your biopsy results are pending. You're also being given prescriptions for pantoprazole, alprazolam, nicotine patch, and tramadol. He should follow-up with Dr. Gonzalez, surgery, as scheduled. You appear to be allergic to ciprofloxacin, so avoid taking this medication. Discharge Planning: >30 minutes discharge planning Discharge Instructions Discharge Diet: No Restrictions Activity as Tolerated: Yes Discharge Physical Examination Vital Signs Vital Signs Date Time Temp Pulse Resp B/P (MAP) Pulse Ox O2 Delivery O2 Flow Rate FiO2 04/06/20 10:30 98 18 96 Room Air 04/06/20 10:20 10 04/06/20 08:00 36.1 118/70 (86) General Appearance: No Apparent Distress, WD/WN Respiratory: Lungs Clear, Normal Breath Sounds, No Respiratory Distress Cardiovascular: Regular Rate, Rhythm, No Edema, No Murmur Gastrointestinal: Normal Bowel Sounds, Non Tender, Soft Extremity: Normal Inspection, No Pedal Edema Skin: Normal Color, Warm/Dry Neurologic/Psychiatric: Alert, Oriented x3, No Motor/Sensory Deficits, Normal Mood/Affect Allergies: Coded Allergies: ciprofloxacin (Verified Allergy, Intermediate, 04/04/20) Penicillins (Verified Allergy, Unknown, 04/01/20) Copy Copies To 1: ALLEN BURTON MD Discharge Summary Date of Admission Apr 04, 2020 at 08:14 Date of Discharge Apr 06, 2020 at 11:40 Discharge Date: Apr 06, 2020 Discharge Time: 11:40 Admission Diagnosis Colitis Consults/Procedures Consulations general surgery Procedures EGD/colonoscopy Discharge Diagnosis Colitis, Possible inflammatory bowel disease, Family history of ulcerative colitis (1) Colitis Status: Acute (2) Drug rash Status: Acute (3) Skin rash Status: Acute (4) Current every day smoker Status: Acute GAURAV DE LEÓN MD Apr 06, 2020 12:00
--- NOTE | 2020-04-06 17:33 | OPERATIVE REPORT ---
DATE OF SERVICE: 04/04/2020 PREOPERATIVE DIAGNOSES: Gastroesophageal reflux disease, diarrhea, crampy lower abdominal, mild inflammation detected on CT scan of the ileocecum. POSTOPERATIVE DIAGNOSES: Reflux esophagitis stage II, moderate size hiatal hernia approximately 2.5 cm in size, moderate gastritis and duodenitis. There may have been some mild inflammation of the cecum and terminal ileum; however, at this time, nothing significant. No polyps or any neoplasms. PROCEDURE: EGD with biopsy, colonoscopy with biopsy. SURGEON: Obdulio Seals MD ANESTHESIA: Conscious sedation. ESTIMATED BLOOD LOSS: Minimal. FINDINGS: Same as postoperative diagnoses. DISPOSITION: The patient tolerated the procedure well. INDICATIONS: The patient is a 39-year-old male who has had issues with crampy abdominal pain in two different locations. He has had issues in the epigastric region for some amount of time and is exacerbated by spicy, greasy and acidic foods as well as stress. This has been worsening over time. He also reports lower crampy abdominal pain and due to this, he presented to the Emergency Department where a CT scan was performed, which did show mild amount of inflammation of the ileocecal region. He did report loose stools as well. He does not report any red blood per rectum nor any mucusy stools. He also does report a family history of inflammatory bowel disease with his mother having the disease. DESCRIPTION OF PROCEDURE: The patient was brought to the endoscopy suite, laid in the left lateral decubitus position. After adequate IV pain and sedative medications and conscious sedation anesthesia, the mouthpiece was applied. The endoscope was placed in the mouth, visualizing the pharynx and hypopharyngeal region. Vocal cords, epiglottis and vallecula identified and appeared to be normal. The endoscope was gently intubated esophageal opening and esophagus insufflated. The endoscope was then advanced through the first, second and third portions of esophagus at the level of the GE junction, a reflux esophagitis stage II identified. There were no ulcers or strictures identified in this region. A biopsy was taken of the GE junction with visualization of good hemostasis. The endoscope was then advanced in the stomach and endoscope retroflexed, visualizing a moderate size hiatal hernia approximately 2.5 cm in size. There was a moderate severity gastritis as well as duodenitis. No formal ulcerations, polyps, or any neoplasms. A biopsy was taken of the antrum to rule out H. pylori with visualization of good hemostasis. The endoscope was then slowly withdrawn while taking a second look and suctioning of residual air with no additional findings. We then proceeded with the colonoscopy portion of the procedure and a digital rectal examination was performed, which did not reveal any significant hemorrhoids. Normal suture tone was felt and there were no palpable masses. Prostate gland was palpable and appeared normal. The endoscope was then intubated to the anus and rectum gently insufflated. The endoscope was then advanced to the valves of [place] of the rectum where no polyps or any neoplasms identified. We then proceeded through the sigmoid colon where no diverticulosis identified. The endoscope was then advanced to the remainder of the descending, transverse and ascending colon to the cecum. At the level of the cecum, there was a mild amount of thickness; however, no mucosal inflammation to indicate any active colitis at this time. The duodenum was also able to be intubated with no inflammation identified. A biopsy was taken of the terminal ileum as well as the cecum. The endoscope was then slowly withdrawn while taking a second look and suctioning of residual air with no additional findings. The patient tolerated the procedure well. We will treat his reflux esophagitis and hiatal hernia with the necessary lifestyle and diet accommodation including small and more frequent meals, avoidance of eating at night as well as head elevation while lying supine. We will also proceed to start him on Protonix 40 mg daily. The lower crampy abdominal pain and diarrhea may be associated with an early undiagnosed inflammatory bowel disease; however, currently not active. We will recommend conservative management for now; however, if he does have recurrent symptoms, we will treat him for inflammatory bowel disease and refer him to gastroenterology. Job ID: [id number] DocumentID: [id number] Dictated Date: 04/06/2020 10:44:05 Orthopedics Teacher Date: 04/06/2020 17:32:34 Dictated By: OBDULIO SEALS MD
== END 2020-04-06 11:40 | disposition home or self-care (01) ==
LOC: EDUNIT# 05:57 → ER 06:00 → 4TH 08:14 → UNDOADMOB 08:14 → 4TH 09:53 → UNDODISOB 04-06 11:40
PROVIDERS: ADMIT Internal Medicine; ATTEND Internal Medicine
DX: K21.00 Gastro-esophageal reflux disease with esophagitis, without bleeding (principal); K44.9 Diaphragmatic hernia without obstruction or gangrene; K52.9 Noninfective gastroenteritis and colitis, unspecified; K29.90 Gastroduodenitis, unspecified, without bleeding; I10 Essential (primary) hypertension; F41.9 Anxiety disorder, unspecified; F17.210 Nicotine dependence, cigarettes, uncomplicated; Z79.899 Other long term (current) drug therapy; Z88.0 Allergy status to penicillin; Z88.1 Allergy status to other antibiotic agents; Z20.822 Contact with and (suspected) exposure to COVID-19
CPT/HCPCS: 43239; 45380; 71045; 80048; 80053; 81000; 83690; 84484; 85007; 85025; 85027; 85610; 85652; 85730; 86141; 87220; 93005; 93041; 94760 ×2; 99284; G0378; U0002; 36415; 87635

== ENCOUNTER → 2020-04-24 | Outpatient (CLI) | payer BC ==
[~2020-04-24] MED LIST changes: +CIPR-225 PO; +DIPH25CA79 PO; +HYOS-19 PO; +L.AC1CAP6 PO; +METH4TAB10 PO; +METR-145 PO; +PRD20T PO; +TRAM50TA3 PO
--- NOTE | 2020-04-24 08:28 | Diagnostic Imaging Report ---
EXAMINATION: US Abdomen limited. TECHNIQUE: Multiple real-time grayscale images were obtained over the right upper quadrant in various projections. HISTORY: ABD PAIN COMPARISON: CT abdomen and pelvis 04/01/2020. FINDINGS: Pancreas: The pancreas is nonvisualized secondary to overlying bowel gas. Liver: The liver is normal in echogenicity and contour. No focal lesions are seen. The portal vein is patent with hepatopetal flow. Gallbladder and biliary tree: Gallbladder is normal without wall thickening, pericholecystic fluid, or sonographic Huerta sign. There is no biliary ductal dilation. The common duct measures 0.5 cm. Right kidney: The right kidney is normal without hydronephrosis. Aorta and IVC: The visualized aorta and inferior vena cava are normal. Fluid: No ascites is seen. IMPRESSION: 1. Unremarkable right upper quadrant ultrasound. Dictated by: Dictated on workstation # [id number]
== END ==
LOC: RAD 07:00
PROVIDERS: ATTEND Surgery
DX: R10.9 Unspecified abdominal pain (principal)
CPT/HCPCS: 76705